=== PATIENT | male | born 1975 | race Two or more races ===

== ENCOUNTER 2023-08-11 00:42 | Emergency (ER) | payer MEDICAID, OTHER ==
[~2023-08-11] VITALS: Ht 175.3 cm; Wt 81.6 kg
[2023-08-11 01:27] LABS: BASOPHILS % (AUTO) 0.5 % (0.0-2.0); EOSINOPHILS # (AUTO) 0.3 K/uL (0.0-0.7); EOSINOPHILS % (AUTO) 3.7 % (0.0-6.0); HEMATOCRIT 42 % (39-51); HEMOGLOBIN 14.4 g/dL (13.5-17.5); LYMPHOCYTES # (AUTO) 3.2 K/uL (0.8-4.8); LYMPHOCYTES % (AUTO) 35.2 % (20.0-44.0); MEAN CORPUSCULAR HEMOGLOBIN 30 PG (26.0-33.0); MEAN CORPUSCULAR HGB CONC 34 g/dl (31.0-36.0); MEAN CORPUSCULAR VOLUME 89 fL (80-96); MONOCYTES # (AUTO) 0.5 K/uL (0.1-1.30); MONOCYTES % (AUTO) 5.7 % (2.0-12.0); NEUTROPHILS # (AUTO) 5.1 K/uL (1.8-8.9); NEUTROPHILS % (AUTO) 54.9 % (43.0-81.0); PLATELET COUNT (AUTO) 113 K/uL (150-450); RED BLOOD CELL COUNT(AUTO) 4.72 MIL/uL (4.5-6.0); RED CELL DISTRIBUTION WIDTH 14.8 % (11.5-15.0); WHITE BLOOD COUNT (AUTO) 9.2 K/uL (4.3-11.0)
[2023-08-11] MEDS: IV NS 0.9% 1,000 ML IV ONE ×2 (01:30→02:47)
[2023-08-11 01:37] LABS: CALCIUM, SERUM 8.4 mg/dL (8.5-10.1); CREATININE 0.8 mg/dL (0.6-1.3); POTASSIUM 3.4 mmol/L (3.5-5.1)
[2023-08-11 01:43] LABS: ALBUMIN 3.5 g/dL (3.4-5.0); BILIRUBIN,TOTAL 0.4 mg/dL (0.2-1.0); TOTAL PROTEIN, SERUM 7.6 g/dL (6.4-8.2)
[2023-08-11] MEDS ORDERED: POTASSIUM CHLORIDE 10 MEQ TABLET.SA ONE (02:45)
[2023-08-11] MEDS: POTASSIUM CHLORIDE 10 MEQ TABLET.SA PO ONE (02:48)
[2023-08-11] MEDS ORDERED: TDAP [DIPH/PERTUSSIS/TET] 0.5 ML VIAL IM ONE (03:54)
[2023-08-11] MEDS: TDAP [DIPH/PERTUSSIS/TET] 0.5 ML VIAL IM ONE (04:00)
[2023-08-11 06:48] LABS: APPEARANCE,URINE CLEAR (CLEAR); BILIRUBIN,URINE NEGATIVE (NEGATIVE); BLOOD, URINE NEGATIVE Ery/uL (NEGATIVE); COLOR,URINE YELLOW (YELLOW); KETONES,URINE NEGATIVE (NEGATIVE); LEUKOCYTE ESTERASE ,URINE NEGATIVE (NEGATIVE); NITRITE, URINE NEGATIVE (NEGATIVE); PROTEIN,URINE NEGATIVE (NEGATIVE); UGLUCOSE NEGATIVE (NEGATIVE); UROBILINOGEN,URINE 0.2 EU/dL (0.2)
[2023-08-11 06:58] LABS: AMPHETAMINE, URINE NEGATIVE (NEGATIVE); BARBITURATE, URINE NEGATIVE (NEGATIVE); BENZODIAZEPINE, URINE NEGATIVE (NEGATIVE); CANNABINOID, URINE NEGATIVE (NEGATIVE); COCCAINE, URINE NEGATIVE (NEGATIVE); OPIATE, URINE NEGATIVE (NEGATIVE); PHENCYCLIDINE SCREEN,URINE NEGATIVE (NEGATIVE)
[2023-08-11 07:38] VITALS: BP 126/78; TEMP 98.1; O2SAT 98
== END 2023-08-11 07:38 | disposition home or self-care (01) ==
LOC: ER 00:44
DX: S01.81XA Laceration without foreign body of other part of head, initial encounter (principal); F10.10 Alcohol abuse, uncomplicated; R06.02 Shortness of breath; W18.39XA Other fall on same level, initial encounter; Y93.89 Activity, other specified; Y92.89 Other specified places as the place of occurrence of the external cause; Y99.8 Other external cause status; Y90.8 Blood alcohol level of 240 mg/100 ml or more
CPT/HCPCS: 12013; 99284; 96360; 96361; 93005; 85025; 81003; 36415; 80053; 80320; 80307; J7030; 90715; G0480